=== PATIENT | female | born 1955 | race Caucasian/White ===

== ENCOUNTER 2017-04-12 18:02 | Emergency (ER) | payer SELFPAY ==
[~2017-04-12] VITALS: Ht 154.9 cm; Wt 62.0 kg
[2017-04-12 18:04] VITALS: BP 132/67; PULSE 119; RESP 14; TEMP 99.1; O2SAT 97
[2017-04-12] MEDS ORDERED: KETOROLAC TROMETHAMINE 30 MG/ML (IVP) VIAL IVP ONE (18:45)
[2017-04-12] MEDS ORDERED: SODIUM CHLOR 0.9% 1000 ML INJ 1,000 ML IV ONE ×2 (18:45)
[2017-04-12] MEDS ORDERED: ONDANSETRON HCL 4 MG/2 ML VIAL IV ONE (18:45)
[2017-04-12] MEDS ORDERED: CITA40TA4 PO (18:54)
[2017-04-12] MEDS ORDERED: LORA1TAB12 PO (18:54)
[2017-04-12] MEDS ORDERED: CARV3.12 PO (18:54)
[2017-04-12] MEDS ORDERED: LISI20TA PO (18:54)
[2017-04-12] MEDS ORDERED: TEMA30CA PO (18:54)
--- NOTE | 2017-04-12 19:16 | RADRPT ---
EXAM DATE/TIME: 04/12/2017 19:02 [place] COMPARISON: No previous studies available for comparison. INDICATIONS : Vomiting and constipation x2 weeks. ORAL CONTRAST: No oral contrast ingested. RADIATION DOSE: 5.09 CTDIvol (mGy) MEDICAL HISTORY : Hypertension. SURGICAL HISTORY : Hysterectomy. ENCOUNTER: Initial ACUITY: 1 day PAIN SCALE: 2/10 LOCATION: Bilateral lower quadrant TECHNIQUE: Volumetric scanning of the abdomen and pelvis was performed. Using automated exposure control and ad justment of the mA and/or kV according to patient size, radiation dose was kept as low as reasonably achievable to obtain optimal diagnostic quality images. DICOM format image data is available electro nically for review and comparison. FINDINGS: LOWER LUNGS: The visualized lower lungs are clear. LIVER: Homogeneous density without lesion. There is no dilation of the biliary tree. No calcified gallston es. SPLEEN: Normal size without lesion. PANCREAS: Within normal limits. KIDNEYS: Normal in size and shape. There is no mass or hydronephrosis. A few punctate calcifications in each kidney measuring 2-3 mm. Left renal low-densities likely cysts. Distal nonobstructing calculus in the right ureter measuring 3 mm ADRENAL GLANDS: Within normal limits. VASCULAR: There is no aortic aneurysm. BOWEL/MESENTERY: The stomach, small bowel, and colon demonstrate no acute abnormality. There is no free intraperitone al air or fluid. No inflammatory changes right lower quadrant. ABDOMINAL WALL: Within normal limits. RETROPERITONEUM: There is no lymphadenopathy. BLADDER: No wall thickening or mass. REPRODUCTIVE: Within normal limits. INGUINAL: There is no lymphadenopathy or hernia. MUSCULOSKELETAL: Within normal limits for patient age. CONCLUSION: 1. 3 mm nonobstructing calculus distal right ureter. 2. No evidence of for bowel obstruction. 3. Nonobstructing bilateral renal calculi. 4. Left-sided renal cysts. Saeid Joseph MD on April 12, 2017 at 19:10 Board Certified Radiologist. This report was verified electronically.
[2017-04-12 19:27] LABS: AUTOMATED NEUTROPHIL # 14.6 TH/MM3 (1.8-7.7); BASOPHIL # 0.1 TH/MM3 (0-0.2); BASOPHIL % 0.4 % (0.0-2.0); EOSINOPHIL % 0.2 % (0.0-4.0); HEMATOCRIT 39.2 % (35.0-46.0); HEMO FLAGS DIFF FINAL; LYMPH % 13.5 % (9.0-44.0); LYMPHOCYTE # 2.6 TH/MM3 (1.0-4.8); MEAN CELL VOLUME 91.5 FL (80.0-100.0); MEAN CORPUSCULAR HEMOGLOBIN 31.8 PG (27.0-34.0); MEAN CORPUSCULAR HGB CONC 34.7 % (32.0-36.0); MONO % 9.2 % (0.0-8.0); NEUT % 76.7 % (16.0-70.0); PLATELET COUNT 348 TH/MM3 (150-450); RED BLOOD COUNT 4.29 MIL/MM3 (4.00-5.30); RED CELL DISTRIBUTION WIDTH 14.8 % (11.6-17.2); WHITE BLOOD COUNT 19.1 TH/MM3 (4.0-11.0)
[2017-04-12 19:47] LABS: ANION GAP 9 MEQ/L (5-15); AST (GOT) 18 U/L (15-37); BICARBONATE 22.2 MEQ/L (21.0-32.0); BLOOD UREA NITROGEN 27 MG/DL (7-18); CHLORIDE 102 MEQ/L (98-107); GLOMERULAR FILTRATION RATE 56 ML/MIN (>89); POTASSIUM 3.6 MEQ/L (3.5-5.1); SODIUM (NA) 133 MEQ/L (136-145)
--- NOTE | 2017-04-12 19:52 | PD ---
HPI Chief Complaint: GI Complaint Time Seen by Provider: 18:32 Travel History International Travel<30 days: No Contact w/Intl Traveler<30days: No Traveled to known affect area: No History of Present Illness HPI Is a 61-year-old woman who presents to the emergency department complaining of vomiting for the past 2 weeks, one to 2 times a day, so she with decreased urination. Chest that some constipation symptoms. Over the past couple days she started getting a right sided flank pain in her right inguinal pain. She's had some subjective chills. Said kidney stones in the past and states it feels like a kidney stone. 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 History Past Medical History Narrative Medical Hypertension Kidney stones Social History Alcohol Use: Yes (stopped about 3 weeks ago, 2 cans a day previous) Tobacco Use: Yes (vapor, 2 cig a day) Allergies-Medications (Allergen,Severity, Reaction): Coded Allergies: No Known Allergies (Unverified , 04/12/17) Reported Meds & Prescriptions Reported Meds & Active Scripts Active Reported Lisinopril-Hctz 20-12.5 Mg Tab 1 Tab PO DAILY Carvedilol 3.125 Mg Tab 3.125 Mg PO BID Temazepam 30 Mg Cap 30 Mg PO HS PRN Citalopram (Citalopram Hydrobromide) 40 Mg Tab 40 Mg PO DAILY Lorazepam 1 Mg Tab Mg PO DAILY PRN Review of Systems Except as stated in HPI: all other systems reviewed are Neg Physical Exam Narrative GENERAL: Well-appearing 61 year-old woman, no acute distress. SKIN: Focused skin assessment warm/dry. HEAD: Atraumatic. Normocephalic. CARDIOVASCULAR: Regular rate and rhythm. No murmur appreciated. RESPIRATORY: No accessory muscle use. Clear to auscultation. Breath sounds equal bilaterally. GASTROINTESTINAL: Abdomen soft, non-tender, nondistended. Hepatic and splenic margins not palpable. MUSCULOSKELETAL: No obvious deformities. No clubbing. No cyanosis. No edema. NEUROLOGICAL: Awake and alert. No obvious cranial nerve deficits. Motor grossly within normal limits. Normal speech. PSYCHIATRIC: Appropriate mood and affect; insight and judgment normal. Data Data Last Documented VS Vital Signs Date Time Temp Pulse Resp B/P Pulse Ox O2 Delivery O2 Flow Rate FiO2 04/12/17 18:04 99.1 119 14 132/67 97 Orders Complete Blood Count With Diff (04/12/17 18:35) Comprehensive Metabolic Panel (04/12/17 18:35) Urinalysis - C+S If Indicated (04/12/17 18:35) Lipase (04/12/17 18:35) Iv Access Insert/Monitor (04/12/17 18:35) Sodium Chlor 0.9% 1000 Ml Inj (Ns 1000 M (04/12/17 18:45) Sodium Chlor 0.9% 1000 Ml Inj (Ns 1000 M (04/12/17 18:45) Ketorolac Inj (Toradol Inj) (04/12/17 18:45) Ondansetron Inj (Zofran Inj) (04/12/17 18:45) Ct Abd/Pel W/O Iv Contrast (04/12/17 ) Labs Laboratory Tests Test 04/12/17 04/12/17 18:35 19:58 White Blood Count 19.1 TH/MM3 Red Blood Count 4.29 MIL/MM3 Hemoglobin 13.6 GM/DL Hematocrit 39.2 % Mean Corpuscular Volume 91.5 FL Mean Corpuscular Hemoglobin 31.8 PG Mean Corpuscular Hemoglobin 34.7 % Concent Red Cell Distribution Width 14.8 % Platelet Count 348 TH/MM3 Mean Platelet Volume 8.9 FL Neutrophils (%) (Auto) 76.7 % Lymphocytes (%) (Auto) 13.5 % Monocytes (%) (Auto) 9.2 % Eosinophils (%) (Auto) 0.2 % Basophils (%) (Auto) 0.4 % Neutrophils # (Auto) 14.6 TH/MM3 Lymphocytes # (Auto) 2.6 TH/MM3 Monocytes # (Auto) 1.8 TH/MM3 Eosinophils # (Auto) 0.0 TH/MM3 Basophils # (Auto) 0.1 TH/MM3 CBC Comment DIFF FINAL Differential Comment Sodium Level 133 MEQ/L Potassium Level 3.6 MEQ/L Chloride Level 102 MEQ/L Carbon Dioxide Level 22.2 MEQ/L Anion Gap 9 MEQ/L Blood Urea Nitrogen 27 MG/DL Creatinine 1.01 MG/DL Estimat Glomerular Filtration 56 ML/MIN Rate Random Glucose 114 MG/DL Calcium Level 10.7 MG/DL Total Bilirubin 0.6 MG/DL Aspartate Amino Transf 18 U/L (AST/SGOT) Alanine Aminotransferase 22 U/L (ALT/SGPT) Alkaline Phosphatase 82 U/L Total Protein 8.6 GM/DL Albumin 4.0 GM/DL Lipase 216 U/L Urine Color YELLOW Urine Turbidity CLEAR Urine pH 5.5 Urine Specific [place] 1.014 Urine Protein TRACE mg/dL Urine Glucose (UA) NEG mg/dL Urine Ketones NEG mg/dL Urine Occult Blood MOD Urine Nitrite NEG Urine Bilirubin NEG Urine Urobilinogen LESS THAN 2.0 MG/DL Urine Leukocyte Esterase NEG Urine RBC 113 /hpf Urine WBC 4 /hpf Urine Squamous Epithelial 1 /hpf Cells Urine Bacteria RARE /hpf Urine Mucus FEW /lpf Microscopic Urinalysis Comment CULT NOT INDICATED MDM Medical Decision Making Medical Screen Exam Complete: Yes Emergency Medical Condition: Yes Interpretation(s) LABS: CBC remarkable for mild leukocytosis per CMP generally unremarkable. Mildly elevated BUN/creatinine. Lipase is normal. UA was some blood CT abdomen and pelvis: 3 mm obstructing distal right ureteral calculus. Differential Diagnosis Kidney stones, gastritis, gastroenteritis, obstruction, other Narrative Course Medical decision-making 61 year-old woman presents emergent from with abdominal pain, worse in the right eye, social with nausea and vomiting. CT scan shows right ureteral lithiasis. Labs otherwise unremarkable. Recommend supportive treatment. Diagnosis Primary Impression: Ureterolithiasis Additional Instructions: Take Naprosyn and Lortab as needed for pain. Use Zofran if needed for nausea or vomiting. Follow-up with your primary doctor in 2-4 days. Return to the emergency department for any new or worsening symptoms. Med/Other Pt SpecificInfo: Prescription(s) given Scripts Ondansetron Odt 4 Mg Tab4 Mg SL Q8HR PRN (Nausea/Vomiting) #12 TAB Prov:Mainor Brandt MD 04/12/17 Naproxen (Naprosyn)500 Mg [id number] Mg PO BID PRN (PAIN SCALE 1 TO 10) #20 TAB Prov:Mainor Brandt MD 04/12/17 Hydrocodone-Acetaminophen (Lortab)5-325 Mg Tab1-2 Tab PO Q6H PRN (PAIN) #12 TAB Prov:Mainor Brandt MD 04/12/17 Disposition: 01 DISCHARGE HOME Condition: Stable Mainor Brandt MD Apr 12, 2017 19:52
[2017-04-12 19:53] LABS: ALKALINE PHOSPHATASE 82 U/L (45-117); ALT (GPT) 22 U/L (10-53); TOTAL BILIRUBIN ADULT 0.6 MG/DL (0.2-1.0)
[2017-04-12 20:29] LABS: BACTERIA, URINE RARE /hpf; BLOOD, URINE MOD (NEG); COMMENT (UR) CULT NOT INDICATED; CULTURE IF INDICATED CULT NOT INDICATED; GLUCOSE,URINE NEG (NEG); KETONE, URINE NEG (NEG); MUCUS URINE FEW /lpf (OCC); NITRITE,URINE NEG (NEG); PH, URINE 5.5 (5.0-8.5); SQUAMOUS EPITHELIAL CELL URINE 1 /hpf (0-5); URINE COLOR YELLOW (YELLW/STRAW)
[2017-04-12] MEDS ORDERED: NAPR500 PO (20:36)
[2017-04-12] MEDS ORDERED: HYDR-3533 PO (20:36)
[2017-04-12] MEDS ORDERED: ONDA4TAB7 SL (20:36)
== END 2017-04-12 20:51 | disposition home or self-care (01) ==
LOC: NEPD 18:02
DX: N20.1 Calculus of ureter (principal); Z87.442 Personal history of urinary calculi
CPT/HCPCS: 74176; 80053; 81001; 83690; 85025; 96374; 96375; 99285; J1885; J2405; J7030